=== PATIENT | female | born 1970 | race African-American/Black ===

== ENCOUNTER → 2017-06-26 | Outpatient (CLI) | payer OTHER ==
[~2017-06-26] MED LIST: FERR324T PO; LISI-787 PO; NIFE30TA83 PO
--- NOTE | 2017-06-26 09:42 | DIAGNOSTIC IMAGING REPORT ---
LEFT TIBIA/FIBULA 2 VIEWS ROUTINE CLINICAL HISTORY: M25.562 Left knee painRAD pain COMPARISON: None. DISCUSSION: The bones and joint spaces appear intact. There is no evidence of fracture, dislocation or bony disease. There is no evidence for soft tissue swelling. IMPRESSION: Negative study. The above report was generated using voice recognition software. It may contain grammatical, syntax or spelling errors. Electronically signed by: Pankaj Delatorre M.D. 06/26/2017 9:41 AM Dictated Date/Time: 06/26/2017 9:40 AM
--- NOTE | 2017-06-26 09:43 | DIAGNOSTIC IMAGING REPORT ---
SINGLE VIEW LEFT KNEE CLINICAL HISTORY: Left knee pain. FINDINGS: An AP standing view of the left knee is obtained. No prior studies are available for comparison at the time of dictation. The skeletal structures are well mineralized. There is no evidence of fracture on this AP view. The joint spaces of the medial and lateral compartment are maintained. There are tiny medial marginal osteophytes. The overlying soft tissues are within normal limits. IMPRESSION: No acute bony abnormality is seen in the left knee on this single frontal view. Electronically signed by: Simeon Emmanuel M.D. 06/26/2017 9:41 AM Dictated Date/Time: 06/26/2017 9:40 AM
[2017-06-26 10:12] LABS: BASO % 0.7 %; BASO ABS # 0.04 K/uL (0-0.2); COMPLETE YES; EOS % 0.7 %; HEMATOCRIT 39.1 % (37-47); IG% 0.2 %; LYMPH % 28.6 %; LYMPH ABS # 1.75 K/uL (1.2-3.4); MEAN CELL VOLUME 71.1 fL (80-100); MEAN CORPUSCULAR HEMOGLOBIN 22.9 pg (25-34); MEAN CORPUSCULAR HGB CONC 32.2 g/dl (32-36); MEAN PLATELET VOLUME 9.9 fL (7.4-10.4); MONO % 4.4 %; NEUT % 65.4 %; PLATELET COUNT 188 K/uL (130-400); WHITE BLOOD COUNT 6.11 K/uL (4.8-10.8)
[2017-06-26 10:21] LABS: BLOOD UREA NITROGEN 10 mg/dl (7-18); BUN/CREATININE RATIO 11.3 (10-20); CALCIUM 8.8 mg/dl (8.5-10.1); CARBON DIOXIDE 25 mmol/L (21-32); CHLORIDE 108 mmol/L (98-107); CREATININE 0.92 mg/dl (0.60-1.20); GLUCOSE 93 mg/dl (70-99); POTASSIUM 3.8 mmol/L (3.5-5.1); SODIUM 140 mmol/L (136-145)
== END | disposition home or self-care (01) ==
LOC: C.RAD1850 09:04
PROVIDERS: ATTEND Internal Medicine
DX: I10 Essential (primary) hypertension (principal); M25.562 Pain in left knee

== ENCOUNTER → 2018-02-10 | Outpatient (CLI) | payer OTHER ==
--- NOTE | 2018-02-10 12:33 | DIAGNOSTIC IMAGING REPORT ---
RIGHT KNEE 2 VIEWS CLINICAL HISTORY: Right knee pain. FINDINGS: AP and lateral weightbearing views of the right knee are obtained. No prior studies are available for comparison at the time of dictation. The skeletal structures are well mineralized. No fracture is seen. There is mild tricompartmental degenerative joint space narrowing. Degenerative beaking is noted in the tibial spine. A small superior patellar enthesophyte is observed. A benign-appearing 12 mm sclerotic focus in the distal femur likely represents a small enchondroma. There is no joint effusion. The overlying soft tissues are within normal limits. IMPRESSION: Minimal degenerative change with no acute bony abnormality seen in the right knee. Electronically signed by: Simeon Emmanuel M.D. 02/10/2018 12:32 PM Dictated Date/Time: 02/10/2018 12:30 PM
--- NOTE | 2018-02-10 12:35 | DIAGNOSTIC IMAGING REPORT ---
LEFT KNEE 2 VIEWS CLINICAL HISTORY: Left knee pain. FINDINGS: AP and lateral weightbearing views of left knee are compared to study dated 06/26/2017. The skeletal structures are well mineralized. There is minimal tricompartmental degenerative joint space narrowing, greatest at the patellofemoral articulation. There are tiny medial marginal osteophytes. No joint effusion is identified. The overlying soft tissues are within normal limits. IMPRESSION: Minimal degenerative change as above. No acute bony abnormality is seen in the left knee. Electronically signed by: Simeon Emmanuel M.D. 02/10/2018 12:33 PM Dictated Date/Time: 02/10/2018 12:32 PM
[2018-02-10 12:42] LABS: BASO % 0.5 %; BASO ABS # 0.03 K/uL (0-0.2); EOS % 3.3 %; EOS ABS # 0.21 K/uL (0-0.5); HEMATOCRIT 38.1 % (37-47); HEMOGLOBIN 12.7 g/dL (12.0-16.0); IG# 0.01 K/uL (0.00-0.02); LYMPH % 31.6 %; LYMPH ABS # 2.04 K/uL (1.2-3.4); MEAN CELL VOLUME 70.8 fL (80-100); MEAN CORPUSCULAR HEMOGLOBIN 23.6 pg (25-34); MEAN CORPUSCULAR HGB CONC 33.3 g/dl (32-36); MEAN PLATELET VOLUME 9.7 fL (7.4-10.4); MONO % 5.4 %; MONO ABS # 0.35 K/uL (0.11-0.59); NEUT ABS # 3.82 K/uL (1.4-6.5); PLATELET COUNT 237 K/uL (130-400); RED CELL DISTRIBUTION WIDTH CV 16.8 % (11.5-14.5); RED CELL DISTRIBUTION WIDTH SD 42.8 fL (36.4-46.3); WHITE BLOOD COUNT 6.46 K/uL (4.8-10.8)
[2018-02-10 13:09] LABS: ALBUMIN 3.6 gm/dl (3.4-5.0); ALT/SGPT 28 U/L (12-78); BLOOD UREA NITROGEN 20 mg/dl (7-18); CALCIUM 8.8 mg/dl (8.5-10.1); CARBON DIOXIDE 28 mmol/L (21-32); CHOLESTEROL 172 mg/dl (0-200); CREATININE 1.05 mg/dl (0.60-1.20); GLUCOSE 84 mg/dl (70-99); SODIUM 140 mmol/L (136-145)
[2018-02-10 13:18] LABS: ALKALINE PHOSPHATASE 53 U/L (45-117); AST/SGOT 16 U/L (15-37); LDL CHOLESTEROL CALCULATED 104 mg/dl; TOTAL PROTEIN 7.2 gm/dl (6.4-8.2)
== END | disposition home or self-care (01) ==
LOC: C.RAD1850 11:39
PROVIDERS: ATTEND Internal Medicine
DX: I10 Essential (primary) hypertension (principal); R94.6 Abnormal results of thyroid function studies; M25.561 Pain in right knee; M25.562 Pain in left knee

== ENCOUNTER 2023-12-15 07:24 | Observation (INO) ==
--- NOTE | 2023-11-17 14:51 | PAT Medication Instructions ---
Medication Instructions Date of Service November 17, 2023 Home Medications Medication Instructions Recorded estradiol 0.01% (0.1 mg/gram) 1 appful vaginal .COMPLEX #42.5 12/15/21 vaginal cream (Estrace) grams albuterol sulfate 90 mcg/actuation 1 inh inhalation QID PRN shortness 09/28/22 aerosol inhaler of breath or wheezing #8.5 grams lisinopril 20 1 tab PO BID #60 tabs 08/31/23 mg-hydrochlorothiazide 12.5 mg tablet meloxicam 7.5 mg tablet 7.5 mg PO BID PRN Pain - OA #30 08/31/23 tabs estradiol 0.01% (0.1 mg/gram) vaginal cream (Estrace) 1 appful vaginal .COMPLEX triamcinolone acetonide 0.5 % topical cream 1 appln topical BID PRN albuterol sulfate 90 mcg/actuation aerosol inhaler 1 inh inhalation QID PRN ibuprofen 200 mg capsule (Motrin IB) 200 mg PO Q6H PRN lisinopril 20 mg-hydrochlorothiazide 12.5 mg tablet 1 tab PO BID meloxicam 7.5 mg tablet 7.5 mg PO BID PRN nifedipine 60 mg tablet,extended release 24 hr (Procardia XL) 60 mg PO QAM ASK your surgeon for instructions ibuprofen 200 mg capsule (Motrin IB) 200 mg PO Q6H PRN meloxicam 7.5 mg tablet 7.5 mg PO BID PRN STOP taking 24 hours before surgery estradiol 0.01% (0.1 mg/gram) vaginal cream (Estrace) 1 appful vaginal .COMPLEX triamcinolone acetonide 0.5 % topical cream 1 appln topical BID PRN DO NOT take the morning of surgery lisinopril 20 mg-hydrochlorothiazide 12.5 mg tablet 1 tab PO BID Take morning of surgery With a small sip of water, OTHERWISE NOTHING TO EAT OR DRINK AFTER MIDNIGHT: albuterol sulfate 90 mcg/actuation aerosol inhaler 1 inh inhalation QID PRN(use if needed; please bring with you to hospital day of surgery if possible) nifedipine 60 mg tablet,extended release 24 hr (Procardia XL) 60 mg PO QAM Take evening before surgery albuterol sulfate 90 mcg/actuation aerosol inhaler 1 inh inhalation QID PRN(if needed) lisinopril 20 mg-hydrochlorothiazide 12.5 mg tablet 1 tab PO BID Other Notes If you have any questions please call us at [phone] or [phone] or [phone] or [phone]
--- NOTE | 2023-11-24 14:07 | Anesthesiology Consultation ---
Date of Service November 24, 2023 Assessment & Plan (1) Encounter for pre-operative examination: - Infectious disease screening: Per assessment on 11/24/23: No known infectious disease contacts or current infectious disease symptoms. No noted recent Covid positive test result. - Outpatient joint assessment: Pt currently scheduled for inpatient pathway. If surgeon requests review for outpatient joint pathway, patient is an acceptable candidate for outpatient joint program from anesthesia standpoint pending surgeon's office assessment that patient is motivated, has good support and completes [facility] preop requirements. - PCP visit (09/29/23): "Hypertension- with medications better controlled.. Anemia due to menorrhagia/status post hysterectomy.. follow-up CBC- January 2018 normal hemoglobin, CBC for follow-up April 02, 2021- came back within normal limits advised to discontinue iron supplement.. establish care with [facility]ology from [facility].. bilateral hip arthritis but worsening left- with MRI hip noted end-stage osteoarthritis plan for surgical intervention left hip replacement December 2023- based on a preop evaluation and discussion during visit September 29, 2023 if no changes stable to proceed with intervention.. Intermittent palpitations/frequent PVC.. EKG December 02, 2013 normal sinus rhythm.. normal Holter monitor completed from Cardiology and stress test was canceled.. because of unusual symptoms January 29, 2018 EKG normal sinus rhythm with 67 beats per minute.. echocardiogram - March 05, 2018 within normal limits with no valvular abnormality, normal ejection fraction and no LVH" Chart Review Chart Review: Acceptable Risk for Surgery and Patient seen in Pre Admission Testing Teaching & Discussion Pre-Anesthesia Teaching/Discussion Notes: Instructed NPO after midnight before surgery,except medications with 15 cc of water. Medication instructions provided according to the PAT guidelines. History Surgery Operation Date: 12/15/23 09:00 Proposed Procedures p Left Anterior Total Hip Arthroplasty - Brandon Chakraborty, Height/Weight Height: 5 ft 7 in Weight: 93.9 kg Allergies Allergy/AdvReac Type Severity Reaction Status Date / Time gluten Allergy Intermediate swelling/bl Verified 11/15/23 14:05 oating soy Allergy Intermediate swelling/bl Verified 11/15/23 14:05 oating Medications Home Medications Medication Instructions Recorded Confirmed Last Taken estradiol 0.01% (0.1 mg/gram) 1 appful vaginal .COMPLEX #42.5 12/15/21 11/15/23 Unknown vaginal cream (Estrace) grams triamcinolone acetonide 0.5 % 1 appln topical BID PRN Rash 03/16/22 11/15/23 Unknown topical cream albuterol sulfate 90 mcg/actuation 1 inh inhalation QID PRN shortness 09/28/22 11/15/23 Unknown aerosol inhaler of breath or wheezing #8.5 grams ibuprofen 200 mg capsule (Motrin 200 mg PO Q6H PRN Pain 07/04/23 11/15/23 Unknown IB) lisinopril 20 1 tab PO BID #60 tabs 08/31/23 11/15/23 Unknown mg-hydrochlorothiazide 12.5 mg tablet meloxicam 7.5 mg tablet 7.5 mg PO BID PRN Pain - OA #30 08/31/23 11/15/23 Unknown tabs nifedipine 60 mg tablet,extended 60 mg PO QAM 11/15/23 11/15/23 Unknown release 24 hr (Procardia XL) Past Medical History Medical History Allergy-induced asthma Hypertension IgG monoclonal gammopathy Following with [facility], last seen 10/2023- recommendation for observation and f/u one year, "no concerns for progression at this time" Osteoarthritis Exercise / Class Metabolic Activity II 4-5 Yardwork/Stairs/Walk up hill (one FS (no CP, no SOB)) Past Family History Family History Other No family history of adverse response to anesthesia Denies family history of Ovarian cancer Prostate cancer Myocardial infarction Breast cancer Colorectal cancer Past Surgical History Surgical History History of breast lump removal benign History of cholecystectomy History of colonoscopy History of neck surgery removal of lipoma S/P KAMALJIT (total abdominal hysterectomy) Past Anesthesia History No Hx of Anesthesia Complications and No Family Hx of Anesthesia Complications History of PONV No Hx of PONV and Hx of Motion Sickness (Situational) Social History Smoking Status: Never smoker Do You Dip or Chew Tobacco: No Hx Alcohol Use: Yes alcohol intake frequency: holidays/special occasions only Hx Substance Use: No substance use type: does not use Review of Systems Patient denies chest pain, shortness of breath, dyspnea on exertion, fever, chills, cough, wheezing. Physical Exam Vital Signs VITALS BP 120/82 P 76 TEMP 98.0 SP02 95%RA RESP 16 PHYSICAL Full cervical extension range of motion. Full TMJ range of motion. TMD 3 finger breaths Mallampati Score 2 Dentition: intact Lungs: clear throughout to auscultation Cardiac: regular rate and rhythm, no murmurs noted Spine: normal Carotid arteries: negative bruit Extremities: no LE edema Lab Results Anesthesia Preop Results Results Anesthesia Widget: WBC 7.65 K/ul (4.8-10.8) 11/24/23 Hgb 12.4 g/dl (12.0-16.0) 11/24/23 Hct 38.5 % (37.0-47.0) 11/24/23 Plt 253 K/uL (130-400) 11/24/23 Na 140 mmol/L (136-145) 11/24/23 K 3.5 mmol/L (3.5-5.1) 11/24/23 Cl 106 mmol/L (98-107) 11/24/23 CO2 28 mmol/L (21-32) 11/24/23 BUN 27 mg/dl (6-23) H 11/24/23 Creat 0.93 mg/dl (0.6-1.2) 11/24/23 Glucose Level 95 mg/dl (70-99(Fasting)) 11/24/23 PT 10.3 Seconds (9.0-12.0) 11/24/23 PTT 27 Seconds (21-31) 11/24/23 INR 0.9 (0.9-1.1) 11/24/23 TSH 1.058 uIu/ml (0.300-4.500) 09/29/23 Free T4 0.77 ng/dl (0.61-1.60) 09/29/23 Blood Type O Positive 11/24/23 Antibody Screen NEGATIVE 11/24/23 Testing Electrocardiogram Date: 09/29/23 Findings: + NSR @ (67) Chest X-Ray Date: 11/24/23 FINDINGS: Lung volumes are normal. Lungs are clear. There is no pneumothorax or pleural effusion. Cardiac size is at the upper limits of normal. Mediastinal contours are normal. There is no evidence for pulmonary edema. Cholecystectomy clips are incidentally noted. IMPRESSION: No acute cardiopulmonary findings. Echocardiogram Date: 03/05/18 EF 60-65%. No regional wall motion abnormality. Grade 1 diastolic dysfunction. No significant valvular disease.
--- NOTE | 2023-12-13 07:23 | History & Physical Report ---
Date of Service December 13, 2023 Assessment & Plan (1) Arthritis pain, hip: We will proceed with a left anterior total of arthroplasty. Postoperatively she will be started on aspirin for DVT prophylaxis and kept overnight in the hospital for postop medical management. She plans to use fit for play at home upon discharge. History of Present Illness Chief Complaint: Osteoarthritis of the left hip. Primary Care Provider: Michelle Gaona MD Dayana is a pleasant 53-year-old female who has been dealing with chronic increasing left hip and groin pain. It has been very painful over the last year. She has been following up with one of my partners. She has had x-rays and MRIs of her hip, which showed advanced arthritis. She had an injection of her hip, which took care of all of her pain for about a week. She cannot live with the pain the way it is. After failed extensive conservative treatment, she has elected proceed with a left anterior total of arthroplasty. Allergies Allergy/AdvReac Type Severity Reaction Status Date / Time gluten Allergy Intermediate swelling/bl Verified 11/15/23 14:05 oating soy Allergy Intermediate swelling/bl Verified 11/15/23 14:05 oating Home Medications Medication Instructions Recorded Confirmed Type estradiol 0.01% (0.1 mg/gram) 1 appful vaginal .COMPLEX #42.5 12/15/21 11/15/23 Rx vaginal cream (Estrace) grams triamcinolone acetonide 0.5 % 1 appln topical BID PRN Rash 03/16/22 11/15/23 History topical cream albuterol sulfate 90 mcg/actuation 1 inh inhalation QID PRN shortness 09/28/22 11/15/23 Rx aerosol inhaler of breath or wheezing #8.5 grams ibuprofen 200 mg capsule (Motrin 200 mg PO Q6H PRN Pain 07/04/23 11/15/23 History IB) lisinopril 20 1 tab PO BID #60 tabs 08/31/23 11/15/23 Rx mg-hydrochlorothiazide 12.5 mg tablet meloxicam 7.5 mg tablet 7.5 mg PO BID PRN Pain - OA #30 08/31/23 11/15/23 Rx tabs nifedipine 60 mg tablet,extended 60 mg PO QAM 11/15/23 11/15/23 History release 24 hr (Procardia XL) Past Med/Surg History Medical History IgG monoclonal gammopathy Following with [facility]c, last seen 10/2023- recommendation for observation and f/u one year, "no concerns for progression at this time" Allergy-induced asthma Osteoarthritis Hypertension Surgical History History of colonoscopy History of cholecystectomy History of neck surgery removal of lipoma History of breast lump removal benign S/P KAMALJIT (total abdominal hysterectomy) Family History Other No family history of adverse response to anesthesia Denies family history of Ovarian cancer Prostate cancer Myocardial infarction Breast cancer Colorectal cancer Social History Smoking Status: Never smoker Second Hand Exposure: No; Do You Dip or Chew Tobacco: No; Hx Alcohol Use: Yes Hx Substance Use: No Preferred Language: Hungarian Communication Ability: Effective Track Surfacing Machine Operator Required: No Beliefs That Will Affect Care: None marital status: Single Current Living Situation: Family Current Living Situation Comment: with kids current occupational status: employed current occupation: accounts receivable Feels Safe at Home: Yes Childhood Exposure to Second-Hand Smoke: No Dental Care, Regularly: No Physical Activity Frequency: 3-4 Times per Week Seatbelt Use: always Sunscreen Use: No Assistive Devices: Glasses and Walker Review of Systems All systems reviewed & are unremarkable except as noted in HPI & below. Physical Exam On physical examination of the left hip, she has decreased range of motion. She has pain with forced internal and external rotation. Most of her pain is located in her groin.. Constitutional WD/WN, vitals as above Eyes PERRL, conjunctivae normal, anicteric sclerae ENMT external ear and nose normal, oropharynx normal Neck trachea midline, no thyromegaly Respiratory normal respiratory effort Cardiovascular RRR, no murmur, no edema Gastrointestinal (Abdomen) normal bowel sounds, soft, nontender, no hepatosplenomegaly Psychiatric A+Ox3, euthymic affect Results & Data Results & Data Laboratory Results . Diagnostic Findings X-rays of the left hip show advanced osteoarthritis with joint space narrowing, osteophyte formation, and [id number] articulation. PG Care Time/CCT Total # of Minutes Spent Total Time Spent with Patient: Total time spent is greater than 50% in coordination of care (as documented) at patient's floor/unit and/or counseling patient: Coding Level of Care Code None Diagnoses Arthritis pain, hip M16.10
[~2023-12-15 07:24] MED LIST changes: +ACETAMINOPHEN 500 MG TAB PO SCH; +BUPIVACAINE 0.5 % 5 MG/1 ML PF 10ML VIAL ONE; +FAMOTIDINE 20 MG TAB PO SCH; -FERR324T PO; +GABAPENTIN 600 MG DOSE PO SCH; -LISI-787 PO; +LR 500ML BOLUS, THEN 15ML/HR IV SCH; +LR 60ML/HR IV SCH; -NIFE30TA83 PO; +ROPIV 0.5% 246mg, Ketorolac 30mg, EPINEPHrine 0.5mg in NSS INFIL SCH; +TRANEXAMIC ACID 1,000 MG **IV Intra-op IV SCH; +TRANEXAMIC ACID 1,000 MG **IV Pre-op IV SCH; +ceFAZolin 2000MG 2,000 MG/15 ML SYR IV SCH; +dexAMETHasone**PF** 10 MG/ML VIAL IV SCH
[2023-12-15] MEDS ORDERED: MIDAZOLAM HCL 1 MG/ML 2ML VIAL ONE ×2 (08:01→08:02)
[2023-12-15] MEDS ORDERED: fentaNYL citrate PF 100 MCG/2 ML VIAL ONE (08:02)
[2023-12-15] MEDS ORDERED: ONDANSETRON INJ 2 MG/ML 2 ML VIAL IV PRN ×2 (08:04→12:45)
[2023-12-15] MEDS ORDERED: ATROPINE SULFATE 0.1 MG/ML 10ML SYR IV PRN (08:04)
[2023-12-15] MEDS ORDERED: ePHEDrine sulfate 50 MG/ML AMP IV PRN (08:04)
[2023-12-15] MEDS ORDERED: fentaNYL citrate PF 100 MCG/2 ML VIAL IV PRN (08:04)
--- NOTE | 2023-12-15 08:08 | History & Physical Bridge Note ---
Date of Service December 15, 2023 History & Physical Bridge Note I have examined the patient, reviewed the History & Physical and in the interval since the performance of the History & Physical I have noted the following changes of clinical significance: no changes noted
[2023-12-15] MEDS ORDERED: ORTHO JOINT ANESTHETIC ONE (08:44)
--- NOTE | 2023-12-15 10:28 | Operative Report ---
PG Post Operative Report Pre & Post Diagnosis Operation Date: 12/15/23 09:00 Pre-Op Diagnosis: Degenerative Joint Disease of Left Hip Post-Op Diagnosis: Degenerative Joint Disease of Left Hip I identified the patient and participated in the time-out.: Yes Procedure Operation Date: 12/15/23 09:00 Actual Procedures p Left Anterior Total Hip Arthroplasty(Left) - Brandon Chakraborty DO Surgeon Brandon Chakraborty DO Head Rigger Brandon Hall PA-C Estimated Blood Loss 350 Findings Consistent with Post-Op Diagnosis Specimens Left femoral head Description of Procedure Implants used I used a ZimmerBiomet total hip arthroplasty system with a size 4 standard offset Taperloc stem, a 46 mm G7 cup with a 25mm screw, an E1 polyethylene liner, a 32 mm ceramic head with a +3 neck. Evelyn arrived at the hospital for the above procedure. She was seen in the preoperative holding area and the operative extremity was identified and signed. She was given a spinal anesthetic, a preoperative antibiotic, and TXA. She was then taken back to the operating room and laid on the table in the supine position. She was given basic sedation. The operative leg was secured to a Puristst leg positioner. The hip was then prepped and draped in sterile fashion. A timeout was done and the patient and the operative extremity was properly identified. An anterior approach was used. Dissection was taken down through the fascia and the tensor muscle belly was retracted laterally and the rectus was retracted medially. The circumflex vessels were identified and ligated. The capsule was then incised and tagged for later repair. The femoral neck was then cut and the femoral head was removed. The acetabulum was exposed. Time was spent doing a complete circumferential labral release. Sequential reaming of the acetabulum up to a size 45 reamer was done. Final reamings were done under fluoroscopy to ensure appropriate version. A Biomet 46 mm G7 cup was then impacted into place. A single 25 mm screw was placed. The E1 polyethylene liner was then snapped into place. Surrounding soft tissues were then injected with 100 cc of an ortho pedic pain control cocktail. The proximal femur was then exposed. Sequential broaching up to a size 4 broach was done. Off that broach a size 32 head with a +3 neck was trialed. The hip was reduced and fluoroscopic images showed anatomic alignment of the implants in acceptable length. The broach was removed. The final size 4 Taperloc stem was then impacted into place. A ceramic 32 mm head with a +3 neck was then impacted onto the stem and the hip was reduced. Final fluoroscopic images showed anatomic alignment of the hip. The capsule was then closed with #1 Vicryl suture. A dilute betadyne lavage was then done for 3 minutes. The joint was then irrigated with normal saline solution. The fascia was closed with #1 PDS suture. Skin was closed with 2-0 Vicryl, marlon, and a Silverlon dressing. She was then transferred to a hospital bed and taken to the post anesthesia care unit in stable condition. She tolerated the procedure well. Brandon Hall PA-C, was present for the entire procedure. He was critical for patient positioning, prepping, draping, retraction exposure, wound closure and application of sterile dressing. I attest to the content of the Intraoperative Record and any orders documented therein. Any exceptions are noted below.
--- NOTE | 2023-12-15 10:33 | Fluoroscopy Report ---
FL hip LT 1V CLINICAL HISTORY: LT ANT HIP TECHNIQUE: 1 views were obtained with the C-arm in the OR with the above procedure. Total fluoroscopy time was 15 seconds. Radiation dose was 1.77 mGy. Comparison: Comparison is made to left hip MRI 08/01/2023 FINDINGS/IMPRESSION: Intraoperative images were obtained of left hip total hip arthroplasty. Please correlate with intraoperative fluoroscopy and operative report. ACT 112: Negative or not required by law. Electronically signed by: Noah Rain M.D. 12/15/2023 10:32 AM
[2023-12-15] MEDS ORDERED: ALBUMIN HUMAN 5% 12.5 GM/250 ML VIAL IV ONE (10:48)
[2023-12-15] MEDS ORDERED: MEPERIDINE HCL 25 MG/ML CARP/VIAL ONE (11:02)
[2023-12-15] MEDS ORDERED: PROPOFOL IV EMULSION 10 MG/ML 20 ML VIAL IV ONE (11:10)
[2023-12-15] MEDS ORDERED: PHENYLEPHRINE 100MCG/ML 10ML SYR IV ONE (11:10)
[2023-12-15] MEDS ORDERED: LIDOCAINE 2% 2 ML VIAL/AMP(20MG/ML) INFIL ONE (11:10)
[2023-12-15 11:27] LABS: Hematocrit (blood only) 37.3 % (37.0-47.0); Hemoglobin 11.6 g/dl (12.0-16.0)
[2023-12-15] MEDS ORDERED: MEPERIDINE HCL 25 MG/ML CARP/VIAL IV STA (11:33)
--- NOTE | 2023-12-15 12:06 | XRay Report ---
AP PELVIS, CROSSTABLE LATERAL LEFT HIP History: Left total hip arthroplasty. Degenerative arthritis. Postop. FINDINGS: The patient is status post a left total hip arthroplasty. The hardware is intact. No fractu re or dislocation. Skin marlon are in place. IMPRESSION: Left total hip arthroplasty. No evidence for hardware complication. ACT 112: Negative or not required by law. Electronically signed by: Med Willis M.D. 12/15/2023 12:04 PM
[2023-12-15] MEDS ORDERED: bisacodyL 10 MG SUPP PR PRN (12:45)
[2023-12-15] MEDS ORDERED: TRIAMCINOLONE ACET 0.5% CR 15 GM TUBE TOP PRN (12:45)
[2023-12-15] MEDS ORDERED: METOCLOPRAMIDE HCL INJ 5 MG/ML 2 ML VIAL IV PRN (12:45)
[2023-12-15] MEDS ORDERED: ALBUTEROL HFA 8 GM INHALER INH PRN (12:45)
[2023-12-15] MEDS ORDERED: MAGNESIUM HYDROXIDE SUSP 30 ML UDC PO PRN (12:45)
[2023-12-15] MEDS ORDERED: NON-FORMULARY MEDICATION (Estradiol [Estrace] 0.01 % (0.1 mg/gram) cream) PV SCH (12:45)
[2023-12-15] MEDS ORDERED: NALOXONE HCL 0.4 MG/1 ML VIAL/CARP IV PRN (12:45)
[2023-12-15] MEDS ORDERED: HYDROmorphone INJ 0.5 MG/0.5 ML SYR IV PRN (12:45)
[2023-12-15] MEDS ORDERED: oxyCODONE HCL IR 5 MG TAB (IMMEDIATE RELEASE) PO PRN (12:45)
--- NOTE | 2023-12-15 12:57 | Anesthesiology Progress Note ---
Date of Service December 15, 2023 Anesthesia Post Procedure Vital Signs Vital Signs: Temp Pulse Pulse Resp BP Pulse Ox O2 Del Method 12/15/23 12:25 76 14 114/79 95 Room Air 12/15/23 12:15 76 14 117/76 95 Room Air 12/15/23 12:05 75 14 111/76 95 Room Air 12/15/23 11:55 76 12 116/77 95 Room Air 12/15/23 11:45 74 14 115/78 99 Room Air 12/15/23 11:35 76 14 113/72 97 Room Air 12/15/23 11:25 78 18 110/74 98 Room Air 12/15/23 11:15 36.7 C 77 20 120/72 100 Oxymask 12/15/23 11:05 85 18 117/73 100 Oxymask 12/15/23 10:55 36.7 C 90 20 122/83 99 Oxymask 12/15/23 07:56 36.4 C L 79 20 118/82 98 Room Air O2 Flow Rate 12/15/23 12:25 12/15/23 12:15 12/15/23 12:05 12/15/23 11:55 12/15/23 11:45 12/15/23 11:35 12/15/23 11:25 12/15/23 11:15 4 12/15/23 11:05 6 12/15/23 10:55 6 12/15/23 07:56 Pain Intensity Left Hip: Pain Intensity: 2 Transfer of Care Handoff Completed per policy Notes Mental Status: alert / awake / arousable Patient Amnestic to Procedure: Yes Nausea / Vomiting: adequately controlled Pain: adequately controlled Airway Patency, RR, SpO2: stable & adequate BP & HR: stable & adequate Hydration State: stable & adequate Neuraxial Anesthesia: was administered and sensory block is resolving Anesthetic Complications: no major complications apparent and Pt Satisfied with anesthetic care
[2023-12-15] MEDS: SODIUM CHLORIDE 0.9% 1,000 ML IV SCH (13:20)
[2023-12-15] MEDS: KETOROLAC 30 MG/ML VIAL IV SCH ×2 (13:20→18:35)
[2023-12-15] MEDS: ceFAZolin 2000MG 2,000 MG/15 ML SYR IV SCH (16:22)
[2023-12-15] MEDS: ACETAMINOPHEN 500 MG TAB PO SCH (16:22)
[2023-12-15] MEDS: SENNA 8.6 MG TAB PO SCH (21:01)
[2023-12-15] MEDS: DOCUSATE SODIUM 100 MG CAP PO SCH (21:01)
[2023-12-15] MEDS: LISINOPRIL/HCTZ 20/12.5MG 1 TAB TAB PO SCH (21:01)
[2023-12-15] MEDS: ASPIRIN 81 MG ECTAB PO SCH (21:02)
[2023-12-16] MEDS: ACETAMINOPHEN 500 MG TAB PO SCH ×3 (00:32→16:52)
[2023-12-16] MEDS: SODIUM CHLORIDE 0.9% 1,000 ML IV SCH (00:32)
[2023-12-16] MEDS: ceFAZolin 2000MG 2,000 MG/15 ML SYR IV SCH (01:40)
[2023-12-16] MEDS: KETOROLAC 30 MG/ML VIAL IV SCH ×4 (01:41→19:01)
--- NOTE | 2023-12-16 07:54 | Orthopedic Progress Note ---
Date of Service December 16, 2023 Assessment & Plan (1) Status post left hip replacement: I reassured her that soreness and weakness with hip flexion is not uncommon after an anterior hip replacement. Will see how she does today with physical therapy when they are able to get her out of bed. She is on aspirin for DVT prophylaxis. If she does well with physical therapy then she can be discharged home today. Otherwise, she can stay until tomorrow. Meme Rivas was seen and examined at bedside this morning. Overall she is doing okay. She has not been out of bed yet. She says she is not able to move her hip. It seems she is just not able to do hip flexion. She is not having any pain and has no complaints.. Review of Systems All systems reviewed & are unremarkable except as noted in HPI & below. Physical Exam On physical examination of the left hip, the dressing is clean and dry and her leg is out full extension. She has active dorsiflexion plantarflexion of her left ankle. I am able to get her to activate her quad and extend her knee. She seems like she is just unable to flex at the hip at this point.. Results & Data Results & Data Laboratory Results . Diagnostic Findings Postoperative x-rays of the left hip show the prosthesis to be in anatomic alignment without any evidence of fracture complication, or loosening.. PG Care Time/CCT Total # of Minutes Spent Total Time Spent with Patient: Total time spent is greater than 50% in coordination of care (as documented) at patient's floor/unit and/or counseling patient: Coding Level of Care Code 11490 Post Operative Follow-Up Diagnoses Status post left hip replacement Z96.642
[2023-12-16] MEDS ORDERED: dexAMETHasone 4 MG TAB PO SCH (08:00)
[2023-12-16] MEDS: ASPIRIN 81 MG ECTAB PO SCH ×2 (08:13→20:11)
[2023-12-16] MEDS: NIFEdipine EXTENDED REL 30 MG TABCR PO SCH (08:14)
[2023-12-16] MEDS: DOCUSATE SODIUM 100 MG CAP PO SCH ×2 (08:14→20:13)
[2023-12-16] MEDS: LISINOPRIL/HCTZ 20/12.5MG 1 TAB TAB PO SCH ×2 (08:15→20:10)
[2023-12-16] MEDS: MULTIVITAMIN TAB PO SCH (08:15)
[2023-12-16] MEDS: SENNA 8.6 MG TAB PO SCH (20:10)
[2023-12-17] MEDS: ACETAMINOPHEN 500 MG TAB PO SCH ×2 (00:34→08:13)
[2023-12-17] MEDS: KETOROLAC 30 MG/ML VIAL IV SCH ×2 (02:24→08:13)
--- NOTE | 2023-12-17 06:28 | Orthopedic Progress Note ---
Date of Service December 17, 2023 Assessment & Plan (1) Status post left hip replacement: Overall she is doing much better. She has been up and ambulating to the bathroom without much difficulty. She will be seen by physical therapy today for ambulation and range of motion exercises. She is on aspirin for DVT prophylaxis. She can be discharged home later today. She will follow-up orthopedics in 2 weeks. Meme Rivas was seen and examined at bedside this morning. Overall she is doing much better. She was able to ambulate okay yesterday with physical therapy but she needed a knee immobilizer. She was having a lot of pain in her hip and was having trouble with hip flexion. She is doing much better today. She is been up and ambulating to the bathroom multiple times without much difficulty. She has no new complaints.. Review of Systems All systems reviewed & are unremarkable except as noted in HPI & below. Physical Exam On physical examination of the left hip, the dressing is clean and dry. Her leg is out full extension. She is active dorsiflexion plantarflexion of her left ankle.. Results & Data Results & Data Laboratory Results . Diagnostic Findings . PG Care Time/CCT Total # of Minutes Spent Total Time Spent with Patient: Total time spent is greater than 50% in coordination of care (as documented) at patient's floor/unit and/or counseling patient: Coding Level of Care Code 27763 Post Operative Follow-Up Diagnoses Status post left hip replacement Z96.642
--- NOTE | 2023-12-17 06:30 | Discharge Summary ---
Date of Service December 17, 2023 Admission HPI (Per Admitting) Dayana is a pleasant 53-year-old female who has been dealing with chronic increasing left hip and groin pain. It has been very painful over the last year. She has been following up with one of my partners. She has had x-rays and MRIs of her hip, which showed advanced arthritis. She had an injection of her hip, which took care of all of her pain for about a week. She cannot live with the pain the way it is. After failed extensive conservative treatment, she has elected proceed with a left anterior total of arthroplasty. Admission Exam (Per Admitting) On physical examination of the left hip, she has decreased range of motion. She has pain with forced internal and external rotation. Most of her pain is located in her groin.. Principal Diagnosis Same as "Discharge Diagnosis" noted below under Discharge Instructions. Discharge Exam On physical examination of the left hip, the dressing is clean and dry. Her leg is out full extension. She is active dorsiflexion plantarflexion of her left ankle.. Discharge Data Procedures Performed Operation Date: 12/15/23 09:00 Actual Procedures p Left Anterior Total Hip Arthroplasty(Left) - Brandon Chakraborty DO Ordered Studies 12/15/23 [place] hip LT 1V Routine Hospital Course (1) Status post left hip replacement: On December 15, 2023 Evelyn arrived at [facility] and underwent a left hip replacement without complication. She had a spinal anesthetic. Postoperatively she was started on aspirin for DVT prophylaxis and transferred to the general orthopedic floors. Her hospital course was uneventful. On postop day #1, her vital signs were stable and her pain was well-controlled. She was having trouble ambulating due to some hip pain and difficulty with hip flexion. She did a little better with the knee immobilizer. Throughout the day she improved. By the evening on postop day #1 she was able to easily get up and go to the bathroom with a walker. On postop day #2 she was feeling much better. She was seen once again by physical therapy and was able to do ambulation and range of motion exercises. She was then discharged home. She will follow-up orthopedics in 2 weeks. PG Care Time/CCT Total # of Minutes Spent Total Time Spent with Patient: Total time spent is greater than 50% in coordination of care (as documented) at patient's floor/unit and/or counseling patient: Discharge Plan Discharge Items Patient Disposition: Home - Self-Care Reason For Visit: DJD Left Hip Discharge Diagnosis: Left hip replacement Activity: Per Instructions section Non-emergency contact: Surgeon Call non-emergency contact if: your wound has increased redness and your wound has increased drainage Follow-up/Referrals: Michelle Gaona MD [Primary Care Provider] - Diet: Regular Addtl Attending Provider Instructions: Activity and Therapy Recommendations: * If you are using [facility] then therapy will be provided at your home until they feel you have accomplished all of your goals. * If you are using [facility] then Physical Therapy will be provided until they feel you are ready to start Outpatient Physical Therapy. * If you are not using home therapy then Outpatient Physical Therapy should start about 3-5 days from your day of surgery. Therapy will last about 6-10 weeks * You were shown a series of exercises in the hospital. Do these exercises three times each day including the exercises you were shown in physical therapy. * Get up and walk several times each day.~ For the first four weeks, try not to stand or walk for more than one hour at a time. If you do stand or walk for more than one hour, you will not hurt anything, but your leg will likely swell.~~ * As you feel comfortable, you may change from the walker or crutches to a cane and~then to independent walking. Medications: * Narcotic You will likely be sent home from the hospital with a prescription for the narcotic pain medication that worked best throughout your stay. * Cefadroxil -take the antibiotic twice a day for 10 days to help prevent infection. * Aspirin Most patients will be required to take Aspirin 81mg twice a day for 6 weeks after surgery. This is obtained [id number] and a prescription is not necessary. * Other medications may be prescribed for specific circumstances. If you have any questions, please call the office at . * Resume previous home medications unless otherwise instructed TEDs/Elastic Stockings: The white elastic stockings help limit swelling and prevent blood clots from forming in your legs. The more you wear them, the more they work. Wear them for six weeks. Dressing Care: Leave the Silverlon dressing in place for 7 days. After 7 days you may remove the dressing. If the incision is not draining then you may leave the marlon open to air. If there is a little bit of drainage or if the marlon are getting stuck on your clothing then cover the incision with a dry dressing. The marlon will be removed at your 2 week follow-up appointment. Showering: You may shower with the Silverlon dressing in place. Do not let the shower spray hit the dressing directly. Pat the Silverlon dressing dry. If the dressing becomes wet underneath, then simply remove the dressing. Keep the incision dry until you are 7 days out from the day of surgery. After 7 days you may remove the Silverlon dressing and shower with the marlon e xposed. Let soapy water run over the marlon and pat them dry. Do not scrub or soak the incision. Things To Watch For: * Drainage from the incision site that occurs more than one week after your surgery. * Increased redness at the incision site. * Fever above 102 degrees Fahrenheit. * Unusual chest pain or shortness of breath. * Call [facility] at with any of the above problems Follow-Up Visit: Follow-up with Dr. Chakraborty's PA (Brandon Hall) 2-3 weeks after your day of surgery. He will remove your marlno and answer any questions. If you have any additional questions or concerns, Dr Chakraborty is usually in the office at the same time and will be available An appointment was probably scheduled when you signed-up for surgery in the office. If you have any questions call Office Instructions: More detailed instructions as well as Frequently Asked Questions were provided in a folder by our office when you signed-up for surgery. Please review these instructions when you get home. If you have any further questions or concerns, please feel free to call the office at [phone] Pending Studies at Discharge: No Stand-Alone Forms: My [facility], Pain - Opioid Pain Management, Smoking Cessation Medications and DC Order Prescriptions: New aspirin 81 mg Tablet,Delayed Release (Dr/Ec) 81 mg PO BID 42 Days Qty: 0 0RF cefadroxil 500 mg capsule 500 mg PO BID 10 Days Qty: 20 0RF oxycodone 5 mg capsule 5 mg PO Q6H PRN (Reason: pain) Qty: 30 0RF Continued estradiol [Estrace] 0.01 % (0.1 mg/gram) cream 1 appful vaginal .COMPLEX Qty: 42.5 2RF Rx Instructions: 1 appful vaginal; twice weekly lisinopril-hydrochlorothiazide 20-12.5 mg tablet 1 tab PO BID Qty: 60 5RF meloxicam 7.5 mg tablet 7.5 mg PO BID PRN (Reason: Pain - OA ) Qty: 30 0RF albuterol sulfate 90 mcg/actuation HFA aerosol inhaler 1 inh inhalation QID PRN (Reason: shortness of breath or wheezing) Qty: 8.5 4RF Patient Comments: uses with allergy/havfever symptoms ibuprofen [Motrin IB] 200 mg capsule 200 mg PO Q6H PRN (Reason: Pain) triamcinolone acetonide 0.5 % cream 1 appln TOP BID PRN (Reason: Rash) nifedipine [Procardia XL] 60 mg tablet extended release 24hr 60 mg PO QAM Discharge Orders: Discharge Order (Routine); Ordered 12/17/23 Ordered By: Brandon Eaton/Other Patient Handouts: Hip Precautions, Hip Replace Home Recovery Admission Data Admit Date/Time: 12/15/23 11:04 Attending Provider: Brandon Chakraborty Admit Provider: Brandon Chakraborty Primary Care Provider: Michelle Gaona V. Other Interventions: Discharge Summary Assessment (RN) Last Done: 12/16/23 09:53
[2023-12-17] MEDS: LISINOPRIL/HCTZ 20/12.5MG 1 TAB TAB PO SCH (08:13)
[2023-12-17] MEDS: NIFEdipine EXTENDED REL 30 MG TABCR PO SCH (08:14)
[2023-12-17] MEDS: ASPIRIN 81 MG ECTAB PO SCH (08:14)
[2023-12-17] MEDS: DOCUSATE SODIUM 100 MG CAP PO SCH (08:14)
[2023-12-17] MEDS: MULTIVITAMIN TAB PO SCH (08:14)
== END 2023-12-17 10:48 | disposition home or self-care (01) ==
LOC: ASU 07:24 → 3N 07:24